=== PATIENT | male | born 1980 | race Two or more races ===

== ENCOUNTER → 2019-05-01 | Emergency (ER) | payer SELFPAY ==
[~2019-05-01] VITALS: Ht 180.3 cm; Wt 90.7 kg
--- NOTE | 2019-05-01 17:00 | NUR ---
called NO response
[2019-05-01 17:21] VITALS: BP 154/106
== END | disposition home or self-care (01) ==
LOC: ER 16:48
DX: S60.222A Contusion of left hand, initial encounter (principal); W22.8XXA Striking against or struck by other objects, initial encounter; Y93.89 Activity, other specified; Y92.89 Other specified places as the place of occurrence of the external cause; Y99.8 Other external cause status
CPT/HCPCS: 73130-TC